=== PATIENT | male | born 1955 | race African-American/Black ===

== ENCOUNTER → 2023-12-12 | Outpatient (CLI) | payer MEDICARE, MEDICAID ==
[~2023-12-12] MED LIST: ASPI-1160 PO; FAMO20TA8 PO; LIP40 PO; METO-385 PO; SACU1TAB PO; TICA90TA PO
== END | disposition home or self-care (01) ==
LOC: CARD 09:53
PROVIDERS: ATTEND Internal Medicine
DX: I08.3 Combined rheumatic disorders of mitral, aortic and tricuspid valves (principal); I50.22 Chronic systolic (congestive) heart failure
CPT/HCPCS: 93306